=== PATIENT | female | born 1960 | race Caucasian/White ===

== ENCOUNTER 2018-10-22 11:25 | Day surgery (SDC) | END 2018-10-22 14:48 | disposition home or self-care (01) ==

== ENCOUNTER 2019-06-28 18:53 | Emergency (ER) | payer OTHER ==
[~2019-06-28] VITALS: Ht 165.1 cm; Wt 99.2 kg
[~2019-06-28 18:53] MED LIST: ALBU8.5H8 INH; AZIT250T PO; NO HOME MEDS; PROM5SYR2 PO
[2019-06-28 18:54] VITALS: BP 139/94; PULSE 92; RESP 22; Ht 165.1 cm; Wt 99.2 kg
== END 2019-06-28 20:05 | disposition home or self-care (01) ==
LOC: FTE 18:53
DX: J20.9 Acute bronchitis, unspecified (principal)
CPT/HCPCS: 99283